=== PATIENT | male | born 1980 | race Caucasian/White ===

== ENCOUNTER 2022-03-08 16:52 | Emergency (ER) | payer OTHER ==
[~2022-03-08 16:52] MED LIST changes: -AMOX TR-K CLV1 EAC4 PO; -NORCO 5-325 TA1 EACH PO; -ONDANSETRON ODT4 MG PO
[2022-03-08 17:30] LABS: BASOPHIL 0.3 % (0-2); EOSINOPHIL 0.5 % (0-5); HCT 39.2 % (42.0-52.0); HGB 13.2 g/dl (13.2-18.0); MCH 29.7 pg (25.0-31.0); MCHC 33.7 g/dL (32.0-36.0); MCV 88.3 fL (78.0-100.0); MONOCYTE 3.3 % (0-12); MPV 8.8 fL (6.0-9.5); NEUTROPHIL 88.6 % (41-80); NRBC 0; PLT 342 K/uL (150-400); RBC 4.44 M/uL (4.70-6.00); RDW 12.8 % (11.5-14.0); WBC 16.5 K/uL (4.0-10.5)
[2022-03-08 17:45] LABS: ALBUMIN 3.7 g/dL (3.4-5.0); BILIRUBIN - TOTAL 0.6 mg/dL (0.2-1.0); BUN/CREAT RATIO (CALC) 13.5 RATIO; CREATININE 0.96 mg/dL (0.67-1.17); POTASSIUM 3.1 mmol/L (3.5-5.1); TOTAL PROTEIN 6.7 g/dL (6.4-8.2)
[2022-03-08 17:48] LABS: LACTIC ACID 1.4 mmol/L (0.4-1.9)
[2022-03-08 19:53] LABS: BILIRUBIN NEGATIVE (NEGATIVE); BLOOD NEGATIVE Ery/uL (NEGATIVE); CLARITY CLEAR (CLEAR); COLOR YELLOW (YELLOW); GLUCOSE (U) NORMAL (NORMAL); LEUKOCYTES NEGATIVE Leu/uL (NEGATIVE); NITRITE NEGATIVE (NEGATIVE); PROTEIN NEGATIVE (NEGATIVE); SPECIFIC GRAVITY 1.025 (1.001-1.030); UROBILINOGEN 0.2 mg/dL (0.2-1.0)
[2022-03-08] MEDS ORDERED: ONDANSETRON ODT4 MG PO (19:56)
[2022-03-08] MEDS ORDERED: NORCO 5-325 TA1 EACH PO (19:56)
[2022-03-08] MEDS ORDERED: AMOX TR-K CLV1 EAC4 PO (19:56)
[2022-03-08 20:36] LABS: MARIJUANA (THC) POSITIVE (NEGATIVE)
[2022-03-08 20:37] LABS: AMPHETAMINES POSITIVE (NEGATIVE); BARBITURATES NEGATIVE (NEGATIVE); ECSTASY (MDMA) POSITIVE (NEGATIVE); METHADONE NEGATIVE (NEGATIVE); OPIATES NEGATIVE (NEGATIVE); OXYCODONE NEGATIVE (NEGATIVE)
== END 2022-03-08 20:34 | disposition home or self-care (01) ==
LOC: FER 16:52
PROVIDERS: Emergency Medicine
DX: G89.18 Other acute postprocedural pain (principal); R10.2 Pelvic and perineal pain; K21.9 Gastro-esophageal reflux disease without esophagitis; E66.9 Obesity, unspecified; Z87.891 Personal history of nicotine dependence; Z48.815 Encounter for surgical aftercare following surgery on the digestive system; Z79.899 Other long term (current) drug therapy
CPT/HCPCS: 36415; 80053; 80305; 81003; 83605; 83690; 84145; 85025; J1170; J2543; J7030

== ENCOUNTER → 2022-03-08 | Day surgery (SDC) | payer OTHER ==
[~2022-03-08] VITALS: Ht 172.7 cm; Wt 104.3 kg
[~2022-03-08] MED LIST: AMOX TR-K CLV1 EAC4 PO; BACLOFEN 10MG T10 MG PO; FLECAINIDE ACET50 MG PO; NAPROXEN500 MG PO; NEXIUM40 MG PO; NORCO 5-325 TA1 EACH PO; ONDANSETRON ODT4 MG PO; PERCOCET 5-3251 EACH PO; TOPROL XL 25MG25 MG PO
== END | disposition home or self-care (01) ==
LOC: FAS 06:01
DX: K31.7 Polyp of stomach and duodenum (principal); K31.9 Disease of stomach and duodenum, unspecified; K44.9 Diaphragmatic hernia without obstruction or gangrene; K64.0 First degree hemorrhoids; K21.00 Gastro-esophageal reflux disease with esophagitis, without bleeding; R63.4 Abnormal weight loss; Z86.010 Personal history of colon polyps; Z87.891 Personal history of nicotine dependence
CPT/HCPCS: J2704; J7120